=== PATIENT | female | born 2005 | race Caucasian/White ===

== ENCOUNTER → 2023-07-15 | Outpatient (CLI) | payer OTHER ==
[2023-07-15 14:45] LABS: HEMATOCRIT 35.6 % (36.0-47.0); HEMOGLOBIN 11.9 g/dl (12.0-15.5); MEAN CORPUSCULAR HEMOGLOBIN 31.8 pg (27.0-33.0); MEAN CORPUSCULAR HGB CONC 33.4 g/dl (32.0-36.5); MEAN CORPUSCULAR VOLUME 95.2 fl (80.0-96.0); PLATELET COUNT, AUTOMATED 211 10^3/uL (150-450); RED BLOOD COUNT 3.74 10^6/uL (4.00-5.40); WHITE BLOOD COUNT 6.6 10^3/uL (4.0-10.0)
[2023-07-15 15:36] LABS: HIV 1&2 SCREEN NEGATIVE (NEGATIVE)
[2023-07-15 15:43] LABS: CHLAMYDIA DNA AMPLIFICATION NEGATIVE (NEGATIVE); GC DNA AMPLIFICATION NEGATIVE (NEGATIVE)
[2023-07-15 15:44] LABS: HEPATITIS C VIRUS ABY INDEX 0.02 INDEX (<0.8)
== END ==
LOC: M PLALAB 10:28
PROVIDERS: ATTEND Obstetrics & Gynecology
DX: Z34.82 Encounter for supervision of other normal pregnancy, second trimester (principal); Z3A.00 Weeks of gestation of pregnancy not specified
CPT/HCPCS: 36415; 76815; 85027; 86762; 86780; 86803; 86850; 86900; 86901; 87086; 87340; 87389; 87810; 87850; G0463

== ENCOUNTER → 2023-08-12 | Outpatient (CLI) | payer OTHER | LOC: M PLALAB 09:15 | PROVIDERS: ATTEND Obstetrics & Gynecology | DX: Z34.82 Encounter for supervision of other normal pregnancy, second trimester (principal) ==

== ENCOUNTER → 2023-09-06 | Outpatient (CLI) | payer OTHER | LOC: M WHC 09:16 | PROVIDERS: ATTEND Specialist | DX: Z34.02 Encounter for supervision of normal first pregnancy, second trimester (principal); Z3A.21 21 weeks gestation of pregnancy ==

== ENCOUNTER → 2023-10-06 | Outpatient (CLI) | payer OTHER ==
[2023-10-06 12:41] LABS: HEMATOCRIT 35.1 % (36.0-47.0); HEMOGLOBIN 11.9 g/dl (12.0-15.5); MEAN CORPUSCULAR HGB CONC 33.9 g/dl (32.0-36.5); MEAN CORPUSCULAR VOLUME 97.2 fl (80.0-96.0); PLATELET COUNT, AUTOMATED 201 10^3/uL (150-450); RED BLOOD COUNT 3.61 10^6/uL (4.00-5.40); WHITE BLOOD COUNT 9.9 10^3/uL (4.0-10.0)
[2023-10-06 14:17] LABS: GC DNA AMPLIFICATION NEGATIVE (NEGATIVE)
== END ==
LOC: M PLALAB 10:06
PROVIDERS: ATTEND Advanced Practice Midwife
DX: Z34.02 Encounter for supervision of normal first pregnancy, second trimester (principal)

== ENCOUNTER → 2023-11-01 | Outpatient (CLI) | payer OTHER | LOC: M WHC 08:06 | PROVIDERS: ATTEND Advanced Practice Midwife | DX: Z34.02 Encounter for supervision of normal first pregnancy, second trimester (principal); Z3A.29 29 weeks gestation of pregnancy ==

== ENCOUNTER 2023-12-01 00:18 | Emergency (ER) | payer OTHER ==
[~2023-12-01] VITALS: Ht 170.2 cm; Wt 75.0 kg
[2023-12-01 00:53] LABS: BASO % 0.2 % (0.0-1.0); EOS # 0.1 10^3/uL (0.0-0.5); EOS % 1.2 % (0.0-3.0); HEMATOCRIT 33.8 % (36.0-47.0); HEMOGLOBIN 11.6 g/dl (12.0-15.5); LYMPH # 2.4 10^3/uL (1.5-5.0); LYMPH % 23.2 % (24.0-44.0); MEAN CORPUSCULAR HGB CONC 34.3 g/dl (32.0-36.5); MONO # 1.2 10^3/uL (0.0-0.8); MONO % 11.1 % (2.0-8.0); NEUTROPHILS # 6.6 10^3/uL (1.5-8.5); NEUTROPHILS % 63.7 % (36.0-66.0); PLATELET COUNT, AUTOMATED 176 10^3/uL (150-450); RED BLOOD COUNT 3.52 10^6/uL (4.00-5.40); WHITE BLOOD COUNT 10.4 10^3/uL (4.0-10.0)
[2023-12-01 01:17] LABS: BLOOD UREA NITROGEN 10 MG/DL (9-23); CALCIUM LEVEL 8.9 MG/DL (8.5-10.1); CARBON DIOXIDE LEVEL 23 MMOL/L (20-31); CHLORIDE LEVEL 108 MMOL/L (98-107); CK-MB VALUE MASS < 1.0 NG/ML (<3.6); CPK CREATINE PHOSPHOKINASE 45 U/L (34-145); CREATININE FOR GFR 0.59 MG/DL (0.55-1.30); GLUCOSE, FASTING 74 MG/DL (60-100); MB/CK RELATIVE INDEX 2.22 (< OR =4); POTASSIUM SERUM 3.7 MMOL/L (3.5-5.1); SODIUM LEVEL 139 MMOL/L (136-145)
[2023-12-01 01:33] LABS: MAGNESIUM LEVEL 1.7 MG/DL (1.8-2.4)
[2023-12-01 01:37] LABS: FREE T4 0.99 NG/DL (0.83-1.43); THYROID STIMULATING HORMONE 1.926 uIU/ML (0.48-4.17)
[2023-12-01] MEDS: NS 1,000 ML IV ONE (01:53)
[2023-12-01 02:31] LABS: CK-MB VALUE MASS < 1.0 NG/ML (<3.6)
[2023-12-01 02:58] LABS: CPK CREATINE PHOSPHOKINASE 57 U/L (34-145); MB/CK RELATIVE INDEX 1.75 (< OR =4)
[2023-12-01 05:52] VITALS: BP 110/72; TEMP 98.8; O2SAT 99
== END 2023-12-01 05:55 | disposition home or self-care (01) ==
LOC: M ED 00:18
DX: O26.53 Maternal hypotension syndrome, third trimester (principal); R00.2 Palpitations; Z3A.33 33 weeks gestation of pregnancy; Z87.891 Personal history of nicotine dependence; Z88.8 Allergy status to other drugs, medicaments and biological substances

== ENCOUNTER 2023-12-21 10:03 | Inpatient (IN) | payer OTHER ==
[~2023-12-21] VITALS: Ht 170.2 cm; Wt 77.1 kg
[2023-12-21] VITALS (9 sets, daily range): BP systolic 112–158; BP diastolic 59–79; TEMP 97.1; O2SAT 96–100
[2023-12-21] MEDS: FERROUS SULFATE 325MG TAB PO SCH (09:00)
[2023-12-21] MEDS: DOCUSATE SODIUM 100MG CAPSULE PO SCH (09:00)
[2023-12-21] MEDS: PRENATAL VITAMINS CHEWABLE TABLET PO SCH (09:00)
[2023-12-21] MEDS ORDERED: TRANEXAMIC ACID INJection 1,000 MG in NS 100 ML IV PRN (10:10)
[2023-12-21] MEDS ORDERED: METHYLERGONOVINE MALEATE 0.2MG/ML 1ML VIAL IM PRN (10:10)
[2023-12-21] MEDS ORDERED: OXYTOCIN INJ 10UNITS/ML 1ML VIAL IM PRN (10:10)
[2023-12-21] MEDS ORDERED: CARBOPROST TROMETHAMINE 250 MCG/ML AMP IM PRN (10:10)
[2023-12-21] MEDS ORDERED: OXYTOCIN DRIP 30 UNITS in IV 1 EA IV PRN (10:10)
[2023-12-21] MEDS: LR 1,000 ML IV SCH ×2 (10:10→13:25)
[2023-12-21] MEDS ORDERED: AMOX875T PO (10:21)
[2023-12-21] MEDS ORDERED: PREN200C PO (10:21)
[2023-12-21] MEDS ORDERED: HOME MED LIST COMPLETE! XX SCH (10:25)
[2023-12-21] MEDS: AZITHROMYCIN INJ 500 MG, VIAL MATE ADAPTER 1 EACH in NS 250 ML IV ONE (11:30)
[2023-12-21] MEDS: BICITRA 30ML SOLN UDC PO ONE (11:30)
[2023-12-21] MEDS: LACTATED RINGER'S 1000 ML IV STA (11:30)
[2023-12-21] MEDS: ceFAZolin SOD 2 GM in IV 1 EA IV ONE (11:30)
[2023-12-21 11:38] LABS: HEMATOCRIT 36.4 % (36.0-47.0); HEMOGLOBIN 12.3 g/dl (12.0-15.5); MEAN CORPUSCULAR HGB CONC 33.8 g/dl (32.0-36.5); MEAN CORPUSCULAR VOLUME 94.8 fl (80.0-96.0); PLATELET COUNT, AUTOMATED 182 10^3/uL (150-450); RED BLOOD COUNT 3.84 10^6/uL (4.00-5.40); WHITE BLOOD COUNT 10.1 10^3/uL (4.0-10.0)
[2023-12-21] MEDS ORDERED: CALCIUM CARBONATE 500 MG CHEW U/D PO PRN (13:25)
[2023-12-21] MEDS ORDERED: PERCOCET 5MG/325MG TAB PO PRN ×2 (13:25)
[2023-12-21] MEDS ORDERED: SIMETHICONE 80MG CHEW TAB PO PRN (13:25)
[2023-12-21] MEDS ORDERED: RHO(D) IMMUNE GLOBULIN/MALTOSE 500MCG(2500IU)/2.2ML VIAL (WINRHO) IM SCH (13:25)
[2023-12-21] MEDS ORDERED: MOM 30ML SUSPENSION UDC PO PRN (13:25)
[2023-12-21] MEDS ORDERED: OXYTOCIN INJ 10UNITS/ML 1ML VIAL As Ordered ONE (13:35)
[2023-12-21] MEDS ORDERED: MORPHINE PRES-FREE INJ 10 MG/10 ML VIAL As Ordered ONE (13:35)
[2023-12-21] MEDS ORDERED: fentaNYL 100 MCG/2 ML INJECTION As Ordered ONE (13:35)
[2023-12-21] MEDS ORDERED: PHENYLephrine 500MCG 5ML (100MCG/ML) SYRINGE As Ordered ONE (13:36)
[2023-12-21] MEDS ORDERED: KETOROLAC 60MG 2ML VIAL As Ordered ONE (14:02)
[2023-12-21] MEDS ORDERED: **NOTE PATIENT COMMENT** MISC XX SCH (14:25)
[2023-12-21] MEDS ORDERED: MEPERIDINE 25 MG/ML 1ML VIAL IV PRN (14:25)
[2023-12-21] MEDS: SLF 3 ML SYR IV SCH (14:25)
[2023-12-21] MEDS ORDERED: NALOXONE INJ 0.4MG/1ML VIAL IV PRN ×2 (14:25)
[2023-12-21] MEDS ORDERED: fentaNYL 100 MCG/2 ML INJECTION IV PRN (14:25)
[2023-12-21] MEDS ORDERED: METOCLOPRAMIDE INJ 10MG/2ML VIAL As Ordered ONE (14:54)
[2023-12-21] MEDS: METOCLOPRAMIDE INJ 10MG/2ML VIAL IV PRN (14:55)
[2023-12-21] MEDS ORDERED: OXYTOCIN 30UNITS IN 0.9% NaCl 500ML IV BAG As Ordered ONE (15:02)
[2023-12-21] MEDS: OXYTOCIN DRIP 30 UNITS in IV 1 EA IV SCH (15:02)
[2023-12-21] MEDS ORDERED: ONDANSETRON 4MG 2ML VIAL As Ordered ONE (15:28)
[2023-12-21] MEDS: ONDANSETRON 4MG 2ML VIAL IV PRN (15:30)
[2023-12-21] MEDS: PROMETHAZINE 25MG/ML 1ML VIAL IV ONE (18:20)
[2023-12-21] MEDS: KETOROLAC 30 MG/ML 1ML VIAL IV SCH (20:46)
[2023-12-22] MEDS: METOCLOPRAMIDE INJ 10MG/2ML VIAL IV PRN (01:26)
[2023-12-22 02:00] VITALS: BP 122/59; O2SAT 94
[2023-12-22 06:00] VITALS: BP 111/57; O2SAT 96
[2023-12-22 06:11] LABS: HEMATOCRIT 32.7 % (36.0-47.0); MEAN CORPUSCULAR HEMOGLOBIN 32.6 pg (27.0-33.0); MEAN CORPUSCULAR HGB CONC 33.6 g/dl (32.0-36.5); PLATELET COUNT, AUTOMATED 165 10^3/uL (150-450); RED BLOOD COUNT 3.37 10^6/uL (4.00-5.40); WHITE BLOOD COUNT 12.3 10^3/uL (4.0-10.0)
[2023-12-22 07:38] LABS: HEPATITIS C VIRUS ABY INDEX < 0.02 INDEX (<0.8)
[2023-12-22 10:00] VITALS: BP 112/61; O2SAT 99
[2023-12-22 14:00] VITALS: BP 111/67; O2SAT 99
[2023-12-22] MEDS: IBUPROFEN 800 MG TAB PO SCH (16:19)
[2023-12-22] MEDS: ACETAMINOPHEN 500 MG TAB PO SCH (17:32)
[2023-12-22 18:00] VITALS: BP 125/71; O2SAT 100
[2023-12-22 22:00] VITALS: BP 121/77; O2SAT 99
[2023-12-23 02:00] VITALS: BP 114/67; O2SAT 99
[2023-12-23 06:00] VITALS: BP 122/62; O2SAT 100
[2023-12-23] MEDS: MEASLES,MUMPS,RUBELLA VACCINE INJ (MMR-II) SC.IMMUN ONE (07:10)
[2023-12-23 10:00] VITALS: BP 121/81; O2SAT 100
[2023-12-23] MEDS ORDERED: COLA100C5 PO (10:56)
[2023-12-23] MEDS ORDERED: IBUP80TA PO (10:56)
== END 2023-12-23 12:20 | disposition home or self-care (01) | DRG 773 ==
LOC: M LDI 10:03 → M OBS 15:50
PROVIDERS: ADMIT Obstetrics & Gynecology; ATTEND Obstetrics & Gynecology
PROC: 10D00Z1 Extraction of Products of Conception, Low, Open Approach (ICD-10-PCS; principal; 2023-12-21 13:00)
DX: O32.1XX0 Maternal care for breech presentation, not applicable or unspecified (principal); O42.12 Full-term premature rupture of membranes, onset of labor more than 24 hours following rupture; O42.013 Preterm premature rupture of membranes, onset of labor within 24 hours of rupture, third trimester; Z87.891 Personal history of nicotine dependence; Z88.8 Allergy status to other drugs, medicaments and biological substances; Z37.0 Single live birth; Z3A.36 36 weeks gestation of pregnancy

== ENCOUNTER → 2023-12-21 | Outpatient (REF) | payer OTHER ==
[~2023-12-21] MED LIST: AMOX875T PO; PREN200C PO
== END ==
LOC: M SFHCWAGY 12:14
PROVIDERS: ATTEND Obstetrics & Gynecology
DX: Z36.85 Encounter for antenatal screening for Streptococcus B (principal); Z3A.36 36 weeks gestation of pregnancy